=== PATIENT | male | born 1965 | race Hispanic/Latino ===

== ENCOUNTER 2024-01-17 18:16 | Inpatient (IN) | payer OTHER ==
[~2024-01-17] VITALS: Ht 170.2 cm; Wt 113.0 kg
[2024-01-17 18:32] LABS: BASOPHILS # (AUTO) 0.02 K/uL (0.00-0.20); BASOPHILS % (AUTO) 0.3 % (0.0-5.0); EOSINOPHILS # (AUTO) 0.01 K/uL (0.00-0.70); EOSINOPHILS % (AUTO) 0.1 % (0.0-8.0); HEMATOCRIT 48.6 % (42-54); IMMATURE GRANULOCYTE ABSOLUTE 0.01 K/uL (0-1); LYMPHOCYTES # (AUTO) 2.3 K/uL (1.0-4.8); LYMPHOCYTES % (AUTO) 31.6 % (21.0-51.0); MEAN CORPUSCULAR HEMOGLOBIN 31.9 pg (27.0-33.0); MEAN CORPUSCULAR HGB CONC 34.2 g/dL (32.0-36.0); MEAN CORPUSCULAR VOLUME 93.3 fL (79-99); MONOCYTES # (AUTO) 0.7 K/uL (0.1-1.0); MONOCYTES % (AUTO) 9.9 % (3.0-13.0); NEUTROPHILS # (AUTO) 4.2 K/uL (1.8-7.7); PLATELET COUNT (AUTO) 207 K/uL (130-400); RED BLOOD CELL COUNT(AUTO) 5.21 MIL/uL (4.50-6.20); RED CELL DISTRIBUTION WIDTH 13.3 % (11.0-15.5); WHITE BLOOD COUNT (AUTO) 7.2 K/uL (4.8-10.8)
[2024-01-17 18:41] LABS: CREATININE 1.1 mg/dL (0.5-1.3); POTASSIUM 3.5 mmol/L (3.5-5.1)
[2024-01-17 18:42] LABS: INR <= 0.93 (0.85-1.15); PROTHROMBIN TIME 10.7 SEC (9.6-11.6)
[2024-01-17 18:45] LABS: ALBUMIN 3.8 g/dL (3.5-5.0); BILIRUBIN,TOTAL 0.4 mg/dL (0.2-1.0); MAGNESIUM 2.8 mg/dL (1.80-2.40); TOTAL PROTEIN, SERUM 7.4 g/dL (6.0-8.3)
[2024-01-17] MEDS ORDERED: MAGNESIUM 2GM PREMIX 50ML 50 ML IV SCH (19:00)
[2024-01-17] MEDS ORDERED: IOHEXOL-350 75 ML VIAL IV ONE (19:09)
[2024-01-17] MEDS ORDERED: BIVALIRUDIN 250 MG/VIAL IV ONE (19:09)
[2024-01-17] MEDS ORDERED: NITROGLYCERIN 50MG VIAL ONE (19:09)
[2024-01-17] MEDS ORDERED: HEPARIN 10,000 UNIT/10ML (1,000 UNIT/ML) VIAL ONE (19:09)
[2024-01-17] MEDS ORDERED: LIDOCAINE HCL 400MG/20ML VIAL ONE (19:09)
[2024-01-17 19:19] LABS: B-TYPE NATRIURETIC PEPTIDE < 5 pg/mL (0-100)
[2024-01-17 19:22] LABS: APPEARANCE,URINE CLEAR (CLEAR); BILIRUBIN,URINE NEGATIVE (NEGATIVE); COLOR,URINE COLORLESS (YELLOW); GLUCOSE, URINE (UA) >=1000 mg/dL (NEGATIVE); KETONES,URINE NEGATIVE (NEGATIVE); LEUKOCYTE ESTERASE ,URINE NEGATIVE Leu/uL (NEGATIVE); NITRATE,URINE NEGATIVE (NEGATIVE); OCCULT BLOOD,URINE NEGATIVE (NEGATIVE); PH,URINE 5.5 (5.0-8.0); PROTEIN,URINE NEGATIVE (NEGATIVE); UROBILINOGEN,URINE 0.2 mg/dL (0.2-1.0)
[2024-01-17 19:35] LABS: ADD UA MICROSCOPIC YES
[2024-01-17 19:38] LABS: BACTERIA,URINE RARE /HPF (None Seen)
[2024-01-17] MEDS: MAGNESIUM 2GM PREMIX 50ML 50 ML IV SCH (20:05)
[2024-01-17] MEDS: NOREPINEPHRIN 4MG/NS 250ML 250 ML IV ONE (20:06)
[2024-01-17] MEDS: EPINEPHRINE PF 1MG (1:1,000) 1 MG/ML AMP ONE (20:07)
[2024-01-17] MEDS ORDERED: NOREPINEPHRIN 4MG/NS 250ML 250 ML IV SCH (20:30)
[2024-01-17 21:57] LABS: AMPHET/METH SCREEN,URINE NEGATIVE (NEGATIVE); BARBITURATE SCREEN, URINE NEGATIVE (NEGATIVE); BENZODIAZEPINES SCREEN,URINE NEGATIVE (NEGATIVE); CANNABINOID SCREEN,URINE NEGATIVE (NEGATIVE); COCAINE SCREEN,URINE POSITIVE (NEGATIVE); OPIATE SCREEN,URINE NEGATIVE (NEGATIVE); PHENCYCLIDINE SCREEN,URINE NEGATIVE (NEGATIVE)
[2024-01-17 21:58] LABS: ACETAMINOPHEN < 1 mcg/mL (10-29); SALICYLATE < 2.8 mg/dL (2.8-20.0)
[2024-01-17] MEDS ORDERED: DEXTROSE 50%-WATER 50 ML DISP.SYRIN IV PRN (23:00)
[2024-01-17] MEDS ORDERED: GLUCAGON 1MG KIT 1 MG ML IM PRN (23:00)
[2024-01-17] MEDS ORDERED: POTASSIUM CHLORIDE 20MEQ/100ML 100 ML IV PRN (23:00)
[2024-01-17] MEDS ORDERED: MAGNESIUM 2GM PREMIX 50ML 50 ML IV PRN (23:00)
[2024-01-17 23:20] LABS: ABG BASE EXCESS -3.9 mmol/L (-2.0-3.0); ABG HCO3 21.7 mmol/L (21.0-28.0); ABG OXYGEN SATURATION 99.6 % (95.0-99.0); ABG PCO2 41 mmHg (35-48); ABG PH 7.338 (7.35-7.450); CARBON MONOXIDE 0.2; HHb 0.4; PO2, ARTERIAL BG 371.2 mmHg (83.0-108.0); VENT MODE, BG NRBM (ROOM AIR)
[2024-01-17 23:22] VITALS: PULSE 90; RESP 19; O2SAT 100
[2024-01-17] MEDS ORDERED: 0.9% NACL 500ML IV.SOLN 500 ML IV SCH (23:30)
[2024-01-18] VITALS (109 sets, daily range): BP systolic 101–145; BP diastolic 48–85; PULSE 70–114; RESP 4–61; O2SAT 93–98
[2024-01-18] MEDS: 0.9%NACL 1000ML 1,000 ML IV SCH (00:09)
[2024-01-18] MEDS ORDERED: SODIUM BICARB 8.4% 50ML SYRING 150 MEQ in DEXTROSE 5%-WATER 1,000 ML IVP SCH (01:00)
[2024-01-18] MEDS: SODIUM BICARB 8.4% 50ML SYRING 150 MEQ in DEXTROSE 5%-WATER 1,000 ML IV SCH (01:12)
[2024-01-18] MEDS: SODIUM BICARB 50MEQ 50ML VIAL 150 ML ONE (01:21)
[2024-01-18] MEDS: CALCIUM GLUC 1GM/10ML VIAL IV ONE (01:25)
[2024-01-18 04:13] LABS: BASOPHILS # (AUTO) 0.01 K/uL (0.00-0.20); BASOPHILS % (AUTO) 0.1 % (0.0-5.0); HEMATOCRIT 44.3 % (42-54); IMMATURE GRANULOCYTE ABSOLUTE 0.05 K/uL (0-1); LYMPHOCYTES # (AUTO) 1.6 K/uL (1.0-4.8); MEAN CORPUSCULAR HEMOGLOBIN 32.5 pg (27.0-33.0); MEAN CORPUSCULAR HGB CONC 34.3 g/dL (32.0-36.0); MEAN CORPUSCULAR VOLUME 94.7 fL (79-99); MONOCYTES # (AUTO) 0.7 K/uL (0.1-1.0); MONOCYTES % (AUTO) 5.7 % (3.0-13.0); NEUTROPHILS # (AUTO) 9.2 K/uL (1.8-7.7); NEUTROPHILS % (AUTO) 79.8 % (40.0-77.0); PLATELET COUNT (AUTO) 208 K/uL (130-400); RED BLOOD CELL COUNT(AUTO) 4.68 MIL/uL (4.50-6.20); RED CELL DISTRIBUTION WIDTH 13.5 % (11.0-15.5); WHITE BLOOD COUNT (AUTO) 11.5 K/uL (4.8-10.8)
[2024-01-18 04:31] LABS: ALBUMIN 3.4 g/dL (3.5-5.0); BILIRUBIN,TOTAL 0.6 mg/dL (0.2-1.0); MAGNESIUM 2.6 mg/dL (1.80-2.40); POTASSIUM 4.2 mmol/L (3.5-5.1); TOTAL PROTEIN, SERUM 6.6 g/dL (6.0-8.3)
[2024-01-18] MEDS: INSULIN HUMULIN R 100 UNIT/ML 3ML SQ SCH (07:30)
[2024-01-18] MEDS: FAMOTIDINE 20MG VIAL IV SCH (08:59)
[2024-01-18] MEDS: LEVOFLOXACIN 750 MG/D5W 150 ML 150 ML IV SCH (09:00)
[2024-01-18] MEDS ORDERED: IBUP-2077 PO (17:48)
[2024-01-18] MEDS ORDERED: DULO30CA52 PO (17:48)
[2024-01-18] MEDS ORDERED: ATOR20TA65 PO (17:48)
[2024-01-18] MEDS ORDERED: LORA10TA7 PO (17:48)
[2024-01-18] MEDS ORDERED: EMPA25TA PO (17:48)
[2024-01-18] MEDS ORDERED: MAXIO OU (17:48)
[2024-01-18] MEDS ORDERED: METO50 PO (17:48)
[2024-01-18] MEDS ORDERED: ATOR40TA71 PO (17:48)
[2024-01-18] MEDS ORDERED: CLOP75TA32 PO (17:48)
[2024-01-18] MEDS ORDERED: NAPR-1023 PO (17:48)
[2024-01-18] MEDS ORDERED: LISI20TA24 PO (17:48)
[2024-01-18] MEDS ORDERED: SEMA1PEN3 SQ (17:48)
[2024-01-19] VITALS (57 sets, daily range): BP systolic 107–143; BP diastolic 55–87; PULSE 56–82; RESP 8–34; O2SAT 93–95
[2024-01-19 09:25] LABS: BASOPHILS # (AUTO) 0.02 K/uL (0.00-0.20); BASOPHILS % (AUTO) 0.2 % (0.0-5.0); EOSINOPHILS # (AUTO) 0.02 K/uL (0.00-0.70); EOSINOPHILS % (AUTO) 0.2 % (0.0-8.0); HEMATOCRIT 49.1 % (42-54); IMMATURE GRANULOCYTE ABSOLUTE 0.04 K/uL (0-1); LYMPHOCYTES % (AUTO) 22.5 % (21.0-51.0); MEAN CORPUSCULAR HEMOGLOBIN 32.7 pg (27.0-33.0); MEAN CORPUSCULAR HGB CONC 33.4 g/dL (32.0-36.0); MONOCYTES # (AUTO) 0.7 K/uL (0.1-1.0); MONOCYTES % (AUTO) 8.1 % (3.0-13.0); NEUTROPHILS # (AUTO) 6.1 K/uL (1.8-7.7); NEUTROPHILS % (AUTO) 68.5 % (40.0-77.0); PLATELET COUNT (AUTO) 167 K/uL (130-400); RED BLOOD CELL COUNT(AUTO) 5.01 MIL/uL (4.50-6.20); RED CELL DISTRIBUTION WIDTH 13.4 % (11.0-15.5); WHITE BLOOD COUNT (AUTO) 8.9 K/uL (4.8-10.8)
[2024-01-19 09:32] LABS: POTASSIUM 3.4 mmol/L (3.5-5.1)
[2024-01-19 09:37] LABS: ALBUMIN 3.3 g/dL (3.5-5.0); BILIRUBIN,TOTAL 0.8 mg/dL (0.2-1.0); TOTAL PROTEIN, SERUM 6.7 g/dL (6.0-8.3)
[2024-01-19] MEDS: KCL 20 MEQ ERTAB PO PRN (10:38)
[2024-01-19] MEDS ORDERED: POTASSIUM CHLORIDE 10% ELIXIR 20 MEQ/15 ML UDCUP PO PRN (11:00)
[2024-01-19] MEDS ORDERED: POTASSIUM CHLORIDE 20MEQ/100ML 100 ML IV PRN (11:00)
[2024-01-20 04:08] VITALS: BP 118/78; PULSE 72; RESP 18
[2024-01-20 05:30] LABS: BASOPHILS # (AUTO) 0.03 K/uL (0.00-0.20); BASOPHILS % (AUTO) 0.3 % (0.0-5.0); EOSINOPHILS # (AUTO) 0.11 K/uL (0.00-0.70); EOSINOPHILS % (AUTO) 1.3 % (0.0-8.0); HEMATOCRIT 47.1 % (42-54); IMMATURE GRANULOCYTE ABSOLUTE 0.04 K/uL (0-1); LYMPHOCYTES # (AUTO) 2.6 K/uL (1.0-4.8); LYMPHOCYTES % (AUTO) 30.5 % (21.0-51.0); MEAN CORPUSCULAR HEMOGLOBIN 32.8 pg (27.0-33.0); MEAN CORPUSCULAR HGB CONC 33.1 g/dL (32.0-36.0); MEAN CORPUSCULAR VOLUME 98.9 fL (79-99); MONOCYTES # (AUTO) 0.8 K/uL (0.1-1.0); MONOCYTES % (AUTO) 9.7 % (3.0-13.0); NEUTROPHILS % (AUTO) 57.7 % (40.0-77.0); PLATELET COUNT (AUTO) 175 K/uL (130-400); RED BLOOD CELL COUNT(AUTO) 4.76 MIL/uL (4.50-6.20); RED CELL DISTRIBUTION WIDTH 13.2 % (11.0-15.5); WHITE BLOOD COUNT (AUTO) 8.6 K/uL (4.8-10.8)
[2024-01-20 05:48] LABS: ALBUMIN 2.9 g/dL (3.5-5.0); BILIRUBIN,TOTAL 0.6 mg/dL (0.2-1.0); MAGNESIUM 1.9 mg/dL (1.80-2.40); TOTAL PROTEIN, SERUM 6.3 g/dL (6.0-8.3)
[2024-01-20 08:00] VITALS: BP 140/85; PULSE 66; RESP 17; O2SAT 94
[2024-01-20 12:00] VITALS: BP 128/83; PULSE 84; RESP 16
[2024-01-20] MEDS ORDERED: IBUPROFEN 800 MG TAB PO PRN (15:00)
[2024-01-20] MEDS ORDERED: LISINOPRIL 20 MG TABLET PO SCH (21:00)
[2024-01-20] MEDS ORDERED: METOPROLOL TARTRATE 50 MG TAB PO SCH (21:00)
[2024-01-21] MEDS ORDERED: ATORVASTATIN 20 MG TABLET PO SCH (09:00)
[2024-01-21] MEDS ORDERED: EMPAGLIFLOZIN 25MG TABLET PO SCH (09:00)
[2024-01-21] MEDS ORDERED: LORATADINE 10 MG TABLET PO SCH (09:00)
[2024-01-21] MEDS ORDERED: CLOPIDOGREL 75MG TAB PO SCH (09:00)
[2024-01-27] MEDS ORDERED: Semaglutide (Ozempic) 1 MG SQ SCH (09:00)
== END 2024-01-20 18:10 | disposition left against medical advice (07) | DRG 917 ==
LOC: EDBD 18:16 → EDH 18:16 → EDHIP 22:42 → 2CH 23:29 → 3BH 01-19 10:55
PROVIDERS: ADMIT Internal Medicine; ATTEND Internal Medicine
DX: T43.212A Poisoning by selective serotonin and norepinephrine reuptake inhibitors, intentional self-harm, initial encounter (principal); I21.3 ST elevation (STEMI) myocardial infarction of unspecified site; J69.0 Pneumonitis due to inhalation of food and vomit; I95.9 Hypotension, unspecified; F32.A Depression, unspecified; F10.129 Alcohol abuse with intoxication, unspecified; E66.9 Obesity, unspecified; F14.10 Cocaine abuse, uncomplicated; I45.10 Unspecified right bundle-branch block; Y90.5 Blood alcohol level of 100-119 mg/100 ml; Z63.5 Disruption of family by separation and divorce; Y92.89 Other specified places as the place of occurrence of the external cause; Z63.4 Disappearance and death of family member; Z68.39 Body mass index [BMI] 39.0-39.9, adult
CPT/HCPCS: 36415; 36600; 71045; 80053; 80305; 81001; 82435; 82803; 82947; 82948; 83605; 83735; 83880; 84132; 84295; 84484; 85018; 85025; 85610; 93005; 93308; 96374; 99291; G0378; G0481; J0171; J0583; J0612; J1644; J1815; J1956; J3475; J3490; J7070; Q9967